=== PATIENT | female | born 1975 | race Caucasian/White ===

== ENCOUNTER 2020-11-29 15:58 | Emergency (ER) | payer OTHER ==
[~2020-11-29 15:58] MED LIST: BENTYL10 MG PO; MACROBID100 MG PO; MEDROL 4MG DOSEP4 MG PO; MOTRIN600 MG PO; NORCO 5-325 TA1 EACH PO; PYRIDIUM200 MG PO; VENTOLIN HFA IN18 GM INH; VOLTAREN **OUT50 MG PO; ZOFRAN8 MG PO
[2020-11-29 16:37] LABS: BASOPHIL 0.6 % (0-2); EOSINOPHIL 0.9 % (0-5); HGB 12.8 g/dl (12.5-16.0); LYMPHOCYTE 28.5 % (15-48); MCH 29.8 pg (25.0-31.0); MCV 93.2 fL (78.0-100.0); MONOCYTE 7.8 % (0-12); MPV 10.2 fL (6.0-9.5); NEUTROPHIL 61.4 % (41-80); NRBC 0; PLT 314 K/uL (150-400); RBC 4.29 M/uL (4.20-5.40); RDW 12.4 % (11.5-14.0); WBC 11.8 K/uL (4.0-10.5)
[2020-11-29 16:56] LABS: INR 1.02 (0.9-1.2); PROTHROMBIN TIME 12.7 SECONDS (11.4-13.6); PTT 26.1 SECONDS (22.2-34.7)
[2020-11-29 17:14] LABS: ALBUMIN 3.5 g/dL (3.4-5.0); BILIRUBIN - TOTAL 0.3 mg/dL (0.2-1.0); BUN/CREAT RATIO (CALC) 33.8 RATIO; CREATININE 0.77 mg/dL (0.51-0.95); GLOBULIN (CALCULATION) 3.3 g/dL; TOTAL PROTEIN 6.8 g/dL (6.4-8.2)
[2020-11-29] MEDS ORDERED: NAPROXEN500 MG PO (18:27)
== END 2020-11-29 18:47 | disposition home or self-care (01) ==
LOC: FER 15:58
PROVIDERS: Emergency Medicine
DX: R09.1 Pleurisy (principal); M94.0 Chondrocostal junction syndrome [Tietze]; J45.909 Unspecified asthma, uncomplicated; Z88.0 Allergy status to penicillin; Z88.5 Allergy status to narcotic agent
CPT/HCPCS: 36415; 71045; 80053; 84484; 85025; 85379; 85610; 85730; 93005

== ENCOUNTER 2022-01-13 10:17 | Emergency (ER) | payer OTHER ==
[~2022-01-13 10:17] MED LIST changes: +NAPROXEN500 MG PO
[2022-01-13] MEDS ORDERED: NAPROXEN500 MG PO (10:46)
== END 2022-01-13 11:37 | disposition home or self-care (01) ==
LOC: FER 10:17
DX: S29.012A Strain of muscle and tendon of back wall of thorax, initial encounter (principal); Z88.0 Allergy status to penicillin; Z88.5 Allergy status to narcotic agent
CPT/HCPCS: 99283

== ENCOUNTER 2022-03-28 13:19 | Emergency (ER) | payer SELFPAY | END 2022-03-28 16:12 | disposition left against medical advice (07) | LOC: FER 13:19 | DX: M54.50 Low back pain, unspecified (principal); Z53.29 Procedure and treatment not carried out because of patient's decision for other reasons; Z88.0 Allergy status to penicillin; Z88.5 Allergy status to narcotic agent | CPT/HCPCS: 99281 ==